=== PATIENT | male | born 1985 | race Caucasian/White ===

== ENCOUNTER 2017-11-18 14:32 | Emergency (ER) | payer OTHER ==
[2017-11-18 14:39] VITALS: TEMP 98.8
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
[2017-11-18 15:44] VITALS: BP 142/77; PULSE 81; RESP 16; O2SAT 96
== END 2017-11-18 15:45 | disposition home or self-care (01) ==
DX: S16.1XXA Strain of muscle, fascia and tendon at neck level, initial encounter (principal); V49.40XA Driver injured in collision with unspecified motor vehicles in traffic accident, initial encounter; Y92.410 Unspecified street and highway as the place of occurrence of the external cause; Y99.8 Other external cause status; Y93.89 Activity, other specified